=== PATIENT | male | born 1980 | race African-American/Black ===

== ENCOUNTER 2018-07-07 02:39 | Emergency (ER) | payer OTHER ==
[2018-07-07] MEDS ORDERED: predniSONE 20 MG TAB ONE (03:02)
[2018-07-07] MEDS ORDERED: Ketorolac Tromethamine 60 MG/2 ML VIAL ONE (03:02)
[2018-07-07 03:12] LABS: Bilirubin Negative (Negative); Blood, Urine Negative (Negative); Clarity Clear (Clear); Glucose, Urine (Dipstick) Negative (Negative); Leukocyte Negative (Negative); Nitrite Negative (Negative); Protein, Urine (Dipstick) Negative (Neg-Trace); Urobilinogen 0.2 mg/dL (0.2-1.0); pH, Urine 5.5 (5.0-9.0)
[2018-07-07 03:16] LABS: Bacteria/HPF None Seen HPF (None Seen); RBC/HPF None Seen HPF (0-3); Specific Gravity, Urine 1.003 (1.002-1.036); Squamous Epithelial None Seen HPF (0-3); WBC/HPF None Seen HPF (0-3)
== END 2018-07-07 03:25 | disposition home or self-care (01) ==
LOC: MADERS 02:39
DX: M54.5 Low back pain (principal)
CPT/HCPCS: 81001; 96372; J1885; J7506